=== PATIENT | female | born 1955 | race Two or more races ===

== ENCOUNTER 2024-04-25 13:01 | Emergency (ER) | payer MEDICARE, OTHER ==
[~2024-04-25] VITALS: Ht 157.5 cm; Wt 54.5 kg
[2024-04-25 13:14] VITALS: TEMP 98.1
[2024-04-25 14:09] LABS: BASOPHILS % (AUTO) 1.2 % (0.0-2.0); EOSINOPHILS % (AUTO) 2.2 % (1.0-6.0); HEMATOCRIT 37.6 % (36-46); HEMOGLOBIN 12.6 g/dL (12.0-16.0); LYMPHOCYTES # (AUTO) 1.5 K/uL (1.0-4.8); LYMPHOCYTES % (AUTO) 18.5 % (22.0-44.0); MEAN CORPUSCULAR HEMOGLOBIN 31.4 pg (26.0-34.0); MEAN CORPUSCULAR HGB CONC 33.5 G/dL (31.0-37.0); MEAN CORPUSCULAR VOLUME 94 fL (80-100); MONOCYTES # (AUTO) 0.7 K/uL (0.1-1.0); MONOCYTES % (AUTO) 8.8 % (2.0-9.0); NEUTROPHILS # (AUTO) 5.5 K/uL (1.8-7.7); NEUTROPHILS % (AUTO) 69.3 % (40.0-70.0); PLATELET COUNT (AUTO) 315 K/uL (150-450); RED BLOOD CELL COUNT(AUTO) 4.02 MIL/uL (4.00-5.20); RED CELL DISTRIBUTION WIDTH 13.8 % (11.5-14.5); WHITE BLOOD COUNT (AUTO) 7.9 K/uL (4.5-11.0)
[2024-04-25 14:14] LABS: APPEARANCE,URINE CLEAR (CLEAR); BILIRUBIN,URINE NEGATIVE (NEGATIVE); COLOR,URINE YELLOW (YELLOW); GLUCOSE, URINE (UA) NEGATIVE (NEGATIVE); KETONES,URINE NEGATIVE (NEGATIVE); LEUKOCYTE ESTERASE ,URINE NEGATIVE (NEGATIVE); NITRATE,URINE NEGATIVE (NEGATIVE); OCCULT BLOOD,URINE NEGATIVE (NEGATIVE); PH,URINE 5.5 (5.0-8.0); PH,URINE DRUG SCREEN 5.5 (5.0-8.0); PROTEIN,URINE NEGATIVE (NEGATIVE); SPECIFIC GRAVITIY, URINE 1.029 (1.003-1.030); UROBILINOGEN,URINE <=1.0 mg/dL (<=1.0)
[2024-04-25 14:19] LABS: CALCIUM, TOTAL 8.6 mg/dL (8.8-10.5); CREATININE 0.98 mg/dL (0.60-1.30); POTASSIUM 3.6 mmol/L (3.5-5.1)
[2024-04-25 14:22] LABS: ALCOHOL, URINE DRUG SCREEN NEGATIVE (NEGATIVE); AMPHET/METH SCREEN,URINE NEGATIVE (NEGATIVE); BARBITURATE SCREEN, URINE NEGATIVE (NEGATIVE); BENZODIAZEPINES SCREEN,URINE NEGATIVE (NEGATIVE); CANNABINOID SCREEN,URINE POSITIVE (NEGATIVE); COCAINE SCREEN,URINE NEGATIVE (NEGATIVE); METHADONE SCREEN, URINE NEGATIVE (NEGATIVE); OPIATE SCREEN,URINE NEGATIVE (NEGATIVE); PHENCYCLIDINE SCREEN,URINE NEGATIVE (NEGATIVE)
[2024-04-25 14:31] LABS: ERYTHROCYTE SEDIMENTATION RATE 15 MM/HR (0-30)
[2024-04-25] MEDS: IBUPROFEN 400 MG TABLET PO ONE (14:33)
[2024-04-25] MEDS: ACETAMINOPHEN 325 MG TABLET PO ONE (14:33)
[2024-04-25] MEDS: DOXYCYCLINE HYCLATE 100 MG TABLET PO ONE (15:00)
[2024-04-25] MEDS ORDERED: HYDR-4072 PO (15:24)
[2024-04-25] MEDS ORDERED: DOXY-354 PO (15:24)
[2024-04-25 15:30] VITALS: BP 125/80; PULSE 84; RESP 18; O2SAT 100
== END 2024-04-25 16:02 | disposition home or self-care (01) ==
LOC: EMS 13:01
DX: L03.114 Cellulitis of left upper limb (principal); L03.011 Cellulitis of right finger; F17.210 Nicotine dependence, cigarettes, uncomplicated; J44.9 Chronic obstructive pulmonary disease, unspecified; Z88.2 Allergy status to sulfonamides; Z88.8 Allergy status to other drugs, medicaments and biological substances; Z91.041 Radiographic dye allergy status
CPT/HCPCS: 80048; 80307; 81003; 85025; 85651; 87040; 99284

== ENCOUNTER 2024-06-17 16:04 | Emergency (ER) | payer MEDICARE, OTHER ==
[~2024-06-17] VITALS: Ht 162.6 cm; Wt 59.1 kg
[~2024-06-17 16:04] MED LIST: DOXY-354 PO; HYDR-4072 PO
[2024-06-17 16:19] VITALS: BP 130/84; PULSE 86; RESP 18; TEMP 98.1; O2SAT 97
[2024-06-17] MEDS ORDERED: DULO-113 PO (16:21)
[2024-06-17] MEDS ORDERED: BREX2TAB PO (16:21)
[2024-06-17] MEDS ORDERED: BUPR-49 PO (16:21)
[2024-06-17] MEDS ORDERED: MIRA50TA PO (16:21)
[2024-06-17] MEDS ORDERED: RIZA10TA42 PO (16:21)
[2024-06-17] MEDS ORDERED: BUSP15TA3 PO (19:23)
[2024-06-17] MEDS ORDERED: TRAZ-257 PO (19:23)
[2024-06-17] MEDS ORDERED: VALA500T34 PO (19:23)
[2024-06-17 19:29] LABS: COVID AG,FIA SOURCE NASAL SWAB
[2024-06-17 19:53] LABS: INFLUENZA TYPE A NEGATIVE FOR TYPE A (NEGATIVE); INFLUENZA TYPE B NEGATIVE FOR TYPE B (NEGATIVE)
[2024-06-17 19:54] LABS: RAPID GROUP A STREP NEGATIVE (NEGATIVE); SARS-COV2 (COVID) ANTIGEN,FIA Negative (Negative)
[2024-06-17] MEDS: IBUPROFEN 600 MG TABLET PO ONE (19:57)
[2024-06-17] MEDS ORDERED: GUAI-1217 PO (20:56)
[2024-06-17] MEDS ORDERED: BENZ-227 PO (20:56)
[2024-06-17] MEDS ORDERED: IBUP-1506 PO (21:22)
[2024-06-17] MEDS: GuaiFENesin/CODEINE [SUGAR-FREE] 200-20MG/10 ML LIQUID UDCUP PO ONE (21:26)
== END 2024-06-17 21:36 | disposition home or self-care (01) ==
LOC: EMS 16:04
DX: J06.9 Acute upper respiratory infection, unspecified (principal); J44.9 Chronic obstructive pulmonary disease, unspecified; Z88.2 Allergy status to sulfonamides; Z88.8 Allergy status to other drugs, medicaments and biological substances; Z91.041 Radiographic dye allergy status; Z79.624 Long term (current) use of inhibitors of nucleotide synthesis; Z79.899 Other long term (current) drug therapy; Z20.822 Contact with and (suspected) exposure to COVID-19
CPT/HCPCS: 71045; 87430; 87804; 99284

== ENCOUNTER 2024-10-22 12:54 | Emergency (ER) | payer MEDICARE, OTHER ==
[~2024-10-22] VITALS: Ht 165.1 cm; Wt 51.8 kg
[~2024-10-22 12:54] MED LIST changes: +BENZ-227 PO; +BREX2TAB PO; +BUPR-49 PO; +BUSP15TA3 PO; -DOXY-354 PO; +DULO60CA98 PO; +GUAI-1217 PO; -HYDR-4072 PO; +IBUP-1506 PO; +MIRA50TA PO; +RIZA10TA42 PO; +TRAZ-257 PO; +VALA500T34 PO
[2024-10-22 13:04] VITALS: TEMP 98.1
[2024-10-22] MEDS: LOPERAMIDE HCL 2 MG CAPSULE PO ONE (13:41)
[2024-10-22 14:03] LABS: BASOPHILS % (AUTO) 1.1 % (0.0-2.0); EOSINOPHILS % (AUTO) 3.1 % (1.0-6.0); HEMATOCRIT 38.1 % (36-46); HEMOGLOBIN 12.6 g/dL (12.0-16.0); LYMPHOCYTES # (AUTO) 1.5 K/uL (1.0-4.8); LYMPHOCYTES % (AUTO) 23.3 % (22.0-44.0); MEAN CORPUSCULAR HEMOGLOBIN 30.6 pg (26.0-34.0); MEAN CORPUSCULAR HGB CONC 33.2 G/dL (31.0-37.0); MEAN CORPUSCULAR VOLUME 92 fL (80-100); MONOCYTES # (AUTO) 0.7 K/uL (0.1-1.0); MONOCYTES % (AUTO) 10.5 % (2.0-9.0); NEUTROPHILS # (AUTO) 4.1 K/uL (1.8-7.7); PLATELET COUNT (AUTO) 330 K/uL (150-450); RED BLOOD CELL COUNT(AUTO) 4.13 MIL/uL (4.00-5.20); RED CELL DISTRIBUTION WIDTH 13.9 % (11.5-14.5); WHITE BLOOD COUNT (AUTO) 6.6 K/uL (4.5-11.0)
[2024-10-22 14:07] LABS: ANION GAP 3 mmol/L (8-16); CALCIUM, TOTAL 9.6 mg/dL (8.8-10.5); CARBON DIOXIDE 30 mmol/L (22-29); CHLORIDE 103 mmol/L (98-107); CREATININE 0.92 mg/dL (0.60-1.30); GLOMERULAR FILTR. RATE CALC > 60 mL/min (>60); GLUCOSE,RANDOM 100 mg/dL (70-110); SODIUM SERUM 136 mmol/L (136-145); UREA NITROGEN, BLOOD 20 mg/dL (7-18)
[2024-10-22 14:11] LABS: ALBUMIN 3.4 g/dL (3.4-5.0); BILIRUBIN,DIRECT 0.1 mg/dL (0.00-0.20); BILIRUBIN,TOTAL 0.3 mg/dL (0.1-1.0); MAGNESIUM 2.2 mg/dL (1.80-2.40); TOTAL PROTEIN, SERUM 7.3 g/dL (6.4-8.2)
[2024-10-22 16:00] VITALS: BP 149/78; PULSE 75; RESP 17; O2SAT 97
[2024-10-22] MEDS: IBUPROFEN 400 MG TABLET PO ONE (16:03)
[2024-10-22] MEDS: ACETAMINOPHEN 500 MG TABLET PO ONE (16:03)
[2024-10-22] MEDS ORDERED: LOPE1TAB46 PO (16:25)
[2024-10-22] MEDS ORDERED: DICY-1 PO (16:25)
== END 2024-10-22 16:30 | disposition home or self-care (01) ==
LOC: EMS 12:55
DX: R19.7 Diarrhea, unspecified (principal); J44.9 Chronic obstructive pulmonary disease, unspecified; F17.210 Nicotine dependence, cigarettes, uncomplicated; Z88.2 Allergy status to sulfonamides; Z88.8 Allergy status to other drugs, medicaments and biological substances; Z79.624 Long term (current) use of inhibitors of nucleotide synthesis; Z91.041 Radiographic dye allergy status; Z79.899 Other long term (current) drug therapy
CPT/HCPCS: 80048; 80076; 83690; 83735; 85025; 86850; 86900; 86901; 99284

== ENCOUNTER 2024-11-08 11:55 | Emergency (ER) | payer MEDICARE, OTHER ==
[~2024-11-08] VITALS: Ht 165.1 cm; Wt 51.8 kg
[~2024-11-08 11:55] MED LIST changes: +DICY-1 PO; +LOPE1TAB46 PO
[2024-11-08 12:03] VITALS: BP 122/78; PULSE 84; RESP 16; TEMP 98.2; O2SAT 98
[2024-11-08] MEDS ORDERED: DULO30CA89 PO (12:45)
[2024-11-08] MEDS ORDERED: [UNRECOGNIZED DRUG - CODE] PO (12:47)
[2024-11-08] MEDS: DIPHENOXYLATE/ATROP 2.5-0.025 MG TABLET PO ONE (13:23)
[2024-11-08] MEDS: CIPROFLOXACIN HCL 250 MG TABLET PO ONE (13:23)
[2024-11-08] MEDS ORDERED: DICY-1 PO (13:55)
[2024-11-08] MEDS: DICYCLOMINE HCL 20 MG TABLET PO ONE (14:17)
== END 2024-11-08 14:18 | disposition home or self-care (01) ==
LOC: EMS 11:55
DX: R19.7 Diarrhea, unspecified (principal); J44.9 Chronic obstructive pulmonary disease, unspecified; F12.90 Cannabis use, unspecified, uncomplicated; F17.210 Nicotine dependence, cigarettes, uncomplicated; Z88.2 Allergy status to sulfonamides; Z88.8 Allergy status to other drugs, medicaments and biological substances; Z79.899 Other long term (current) drug therapy
CPT/HCPCS: 99284; Z7502; Z7610